=== PATIENT | female | born 1990 ===

== ENCOUNTER 2023-08-05 04:32 | Emergency (ER) | payer OTHER, SELFPAY ==
--- NOTE | ~2023-08-05 | US_ITS ---
EXAMINATION: US VENOUS ULTRASOUND WITH DOPPLER LOWER EXTREMITY, LEFT CLINICAL INFORMATION: Pain edema COMPARISON: None available. TECHNIQUE: Ultrasound of the deep veins is performed from the hip to the calf with compression sonography and color and pulse Doppler assessment. Spectral analysis with color-flow imaging is performed. FINDINGS: There is normal venous compression and respiratory variation and augmented flow. The visualized common femoral vein, superficial femoral vein, profunda femoral vein, popliteal vein, and the trifurcation region shows no evidence of deep venous thrombosis. There is no significant popliteal fossa cyst. If the patient's symptoms persist, followup ultrasound in 5 days 7 days might be of value to exclude proximal propagation from a non-visualized calf vein. US/US venous duplex LE LT IMPRESSION: No DVT demonstrated in the left lower extremity.
[2023-08-05 04:47] VITALS: BP 184/159; PULSE 87; TEMP 36.7; O2SAT 95; BMI 37.5
--- NOTE | 2023-08-05 05:17 | ED.EXTPRO ---
HPI - Extremity Problem General Chief complaint: Extremity Problem Stated complaint: pain in legs Time Seen by Provider: 08/05/23 04:39 Source: patient Mode of arrival: ambulatory Limitations: no limitations History of Present Illness HPI Narrative: 33 yo female with PMH of left leg DVT a year ago treated at [facility] she is on both aspirin and eliquis states she has left iliac vein stent. She did not have a hypercoaguability work up is not on OCPs. She notes her grandmother had VTE as well. She tells me since the stent she has chronic intermittent L leg pain that is affecting her daily life since the stent. Her leg swells then she has pain and then she will have pain in the groin. Her leg will get pink and red but she has never had a skin infection. She has seen 2 vascular doctors at [facility] but no answers and has had US and CT scans that show no further clot and stent in place. MD Complaint: extremity pain Onset (ago): month(s) Pain Consistency: intermittent Location: left and lower extremity Quality: aching and constant Radiation: none Relieving factors: nothing Exacerbating factors: walking Associated symptoms: rash Context: other (since she received her iliac stent) Related Data Allergies Allergy/AdvReac Type Severity Reaction Status Date / Time ibuprofen Allergy Anaphylaxis Verified 08/05/23 05:02 ketorolac [From Toradol] Allergy Anaphylaxis Verified 08/05/23 05:02 morphine Allergy Shortness Verified 08/05/23 05:02 of Breath Review of Systems Review of Systems: Constitutional : No Fever, No Chills ENT/Mouth : No Ear Pain, No Hoarseness, No sore throat Eyes: No Eye Pain, No Swelling, No Redness, No Foreign Body Cardiovascular : No Chest Pain, No SOB, pos edema Respiratory : No Cough, No Dyspnea Gastrointestinal : No Nausea, No Vomiting, No Diarrhea, No abdominal Pain Genitourinary : No Dysuria, No Hematuria Musculoskeletal : no joint pain, No Myalgias, No Joint Swelling, pos leg pain Skin : No Skin lacerations, No rash Neuro : No Weakness, No Numbness, No Loss of Consciousness, No Dizziness, No Headache Psych : No Anxiety/Panic, No Depression Heme/Lymph: no easy bruising, no Lymphadenopathy Endocrine : No Polyuria, No Polydipsia All other systems reviewed and are negative [facility] Past Medical History Attestation statement: The following information was validated with the patient. Source: old records reviewed Medical History (Updated 08/05/23 @ 05:35 by Adore Hancock DO) May-Thurner syndrome DVT (deep venous thrombosis) Surgical History (Updated 08/05/23 @ 05:24 by Adore Hancock DO) H/O: hysterectomy Social History Social History (Updated 08/05/23 @ 05:24 by Adore Hancock DO) Patient Tobacco Use Status: Never used Tobacco Advance Directives: No Advance Directives Information Provided: No Physical Exam Vital Signs: Vital Signs: Last Vital Signs Temp 98.0 F 08/05/23 04:47 Pulse 87 08/05/23 04:47 BP 184/159 H 08/05/23 04:47 Pulse Ox 95 08/05/23 04:47 O2 Del Method Room Air 08/05/23 04:47 BMI result Body Mass Index 37.5 Appearance: Alert. Oriented X3. No acute distress. Eyes: Pupils equal, round and reactive to light. ENT: Pharynx normal. Neck: Normal inspection. Neck supple. CVS: Normal heart rate and rhythm. Pulses normal. Respiratory: No respiratory distress. Breath sounds normal. Abdomen: Soft and nontender. Skin: Skin warm and dry. Normal skin color. Normal skin turgor. Extremities: L leg around calf slightly more swollen but not pitting on medial proximal anterior connell there is very faint lacy pink area but no warmth. She is NV intact with 2+ DP and PT pulse Neuro: Oriented X 3. No motor deficit. No sensory deficit. Course Course Course Narrative: signed out to Dr. Saleem pending US and further workup Medications Administered Discontinued Medications Generic Name Dose Route Start Last Admin Trade Name Freq PRN Reason Stop Dose Admin Hydromorphone HCl 1 mg 08/05/23 05:04 08/05/23 05:39 Hydromorphone Hcl 1 Mg/Ml Syringe IVPUSH 08/05/23 05:05 1 mg ONCE ONE Administration Protocol Ondansetron HCl 4 mg 08/05/23 05:04 08/05/23 05:39 Ondansetron Hcl 4 Mg/2 Ml Vial IVPUSH 08/05/23 05:05 4 mg ONCE ONE Administration Medical Decision Making Medical Decision Making MDM Narrative: 33 yo female with DVT and May-Thurner syndrome s/p treatment at [facility] with aspirin, eliquis and L iliac vein stent she notes for months now she has chronic L leg pain with intermitent bouts of swelling and pain - also gets lacy pink rash but no hx of infections or antibiotic use. She comes in as she cannot take the pain any longer. There are no signs of infection. At this time pulses intact. Compartments are soft and compressible will obtain basic labs, DVT study, IV dilaudid for pain Differential Diagnosis Differential Diagnoses: The differential diagnosis associated with the presentation includes chronic pain, neuropathy, DVT Admission/Observation Consideration of admission/observation: Escalation of care including admission/observation considered Lab Data MDM Lab Attestation statement: I reviewed the patient's lab results. 08/05/23 05:16 08/05/23 05:48 Labs: Lab Results 08/05/23 08/05/23 Range/Units 05:16 05:48 WBC 6.1 (4.8-10.8) X10*3/uL RBC 4.63 (4.20-5.50) X10*6/uL Hgb 13.7 (12.0-16.0) g/dl Hct 40.3 (37.0-47.0) % MCV 87.0 (80.0-98.0) fL MCH 29.6 (27.0-33.0) pg MCHC 34.0 (31.0-35.0) g/dl RDW 12.5 (11.0-16.0) % Plt Count 227 (160-400) X10*3/uL MPV 10.3 (9.4-12.3) fL Immature Gran % (Auto) 0.3 (0.0-0.4) % Neut % (Auto) 55.2 (45-73) % Lymph % (Auto) 36.4 (20-40) % Hemphill % (Auto) 6.4 (2-11) % Eos % (Auto) 1.2 (0-4) % Baso % (Auto) 0.5 (0-2) % Lymph # (Auto) 2.2 (1.2-4.9) X10*3/uL Hemphill # (Auto) 0.4 (0.1-1.2) X10*3/uL Eos # (Auto) 0.1 (0.0-0.4) X10*3/uL Baso # (Auto) 0.0 (0.0-0.2) X10*3/uL Abs Immat Gran (auto) 0.02 (0.00-0.03) X10*3/uL Absolute Neuts (auto) 3.4 (2.0-8.3) x10*3/uL Absolute Nucleated RBC 0.000 (0.0-0.012) X10*3/uL Nucleated RBC % (auto) 0.0 (0.0-0.2) /100WBC Sodium 138 (135-145) mmol/L Potassium 4.1 (3.3-5.1) mmol/L Chloride 107 (96-108) mmol/L Carbon Dioxide 22 (22-29) mmol/L Anion Gap 13 (12-20) BUN 11 (9-16) mg/dL Creatinine 0.69 (0.5-1.4) mg/dL Estim Creat Clear Calc 124.3 Estimated GFR > 60 Random Glucose 121 H (60-115) mg/dL Calcium 8.7 (8.4-10.2) mg/dL Magnesium 1.9 (1.6-2.6) mg/dL C-Reactive Protein 0.51 H (< or = 0.50) mg/dL Independent Interpretation I performed an independent interpretation of an: Ultrasound Radiology Impression Discussion of test interpretation with radiology: I have reviewed the radiologist's reading. External Record Review External record reviewed: Outpatient record [facility] records - CT scan 07/14 abdomen pelvis no aneurysm no evidence of venous thrombosis, stent within left common iliac vein seen Critical Care Time Critical Care Time Critical Care Time: Yes Total Critical Care Time: 35 Attestation: pain improved with IV dllaudid, review of records I attest to this time spent taking care of the patient Discharge Plan Discharge Clinical Impression: Chronic leg pain Qualifiers: Laterality: left Qualified Code(s): M79.605 - Pain in left leg Patient Disposition: Still a Patient Instructions: Leg Pain (ED) Additional Instructions: labs reassuring, follow up with our vascular surgeon and our process manufacturing engineer for further workup. Referrals: Jacky Correa MD [Physician] - (can call to schedule appointment ) Linh Oropeza MD [Physician] - (hematology workup for DVT)
[2023-08-05 05:20] LABS: MANUAL DIFF FLAG NO
[2023-08-05 05:21] LABS: Basophils Percent Auto 0.5 % (0-2); Eosinophils Absolute Auto 0.1 X10*3/uL (0.0-0.4); Eosinophils Percent Auto 1.2 % (0-4); Hematocrit 40.3 % (37.0-47.0); Hemoglobin 13.7 g/dl (12.0-16.0); Imm Gran Abs Auto 0.02 X10*3/uL (0.00-0.03); Imm Gran Pct Auto 0.3 % (0.0-0.4); Lymphocytes Absolute Auto 2.2 X10*3/uL (1.2-4.9); Lymphocytes Percent Auto 36.4 % (20-40); Mean Corpuscular Hemoglobin 29.6 pg (27.0-33.0); Mean Platelet Volume 10.3 fL (9.4-12.3); Monocytes Absolute Auto 0.4 X10*3/uL (0.1-1.2); Monocytes Percent Auto 6.4 % (2-11); Neutrophils Absolute Auto 3.4 x10*3/uL (2.0-8.3); Neutrophils Percent Auto 55.2 % (45-73); Platelet Count 227 X10*3/uL (160-400); Red Blood Count 4.63 X10*6/uL (4.20-5.50); Red Cell Distribution Width 12.5 % (11.0-16.0); White Blood Count 6.1 X10*3/uL (4.8-10.8)
[2023-08-05] MEDS: HYDROmorphone HCl 1 MG/ML SYRINGE IVPUSH (05:39)
[2023-08-05] MEDS: ondansetron HCL 4 MG/2 ML VIAL IVPUSH (05:39)
[2023-08-05 06:06] LABS: Anion Gap 13 (12-20); Blood Urea Nitrogen 11 mg/dL (9-16); C Reactive Protein 0.51 mg/dL (< or = 0.50); Calcium 8.7 mg/dL (8.4-10.2); Carbon Dioxide 22 mmol/L (22-29); Chloride 107 mmol/L (96-108); Creatinine Clr Calc Pharmacy 124.3; Estimated Glomerular Filt Rate > 60; Glucose Random 121 mg/dL (60-115); Magnesium 1.9 mg/dL (1.6-2.6); Potassium 4.1 mmol/L (3.3-5.1); Sodium 138 mmol/L (135-145)
[2023-08-05 08:02] VITALS: BP 115/74; PULSE 79; RESP 16; TEMP 36.7; O2SAT 99
== END 2023-08-05 10:13 | disposition home or self-care (01) ==
PROVIDERS: Emergency Provider Emergency Medicine
DX: G89.29 Other chronic pain (principal); M79.605 Pain in left leg; I87.1 Compression of vein; Z86.718 Personal history of other venous thrombosis and embolism; Z79.01 Long term (current) use of anticoagulants; Z79.82 Long term (current) use of aspirin
CPT/HCPCS: 36415; 80048; 83735; 85025; 86140; 93971; 96374; 96375; 99283; 99284; J1170; J2405

== ENCOUNTER → 2023-09-15 13:30 | Outpatient (BNV) | payer OTHER, SELFPAY | PROVIDERS: PCP Surgery Vascular Surgery; Visit Provider Internal Medicine Medical Oncology | DX: I82.402 Acute embolism and thrombosis of unspecified deep veins of left lower extremity (principal); Z79.01 Long term (current) use of anticoagulants | CPT/HCPCS: 99204 ==